=== PATIENT | female | born 1970 | race Caucasian/White ===

== ENCOUNTER → 2023-04-12 01:02 | Outpatient (CLI) | payer MEDICAID, SELFPAY ==
--- NOTE | 2023-04-12 08:15 | DI.RAD_ITS ---
Exam(s) XR CHEST 2V PA LATERAL EXAM: XR CHEST 2V PA LATERAL CLINICAL HISTORY: chronic cough/hx of breast cancer,r05.9 TECHNIQUE: 2D digital imaging was performed of the chest. Two images were obtained. PA and lateral views were obtained. COMPARISON: No exams were available for comparison FINDINGS: MEDIASTINUM: Normal. HEART: Normal. PULMONARY VASCULATURE: Normal. LUNGS: Clear. PLEURAL SPACE: No pleural effusion or pneumothorax. BONE:Within normal limits for the patient's age. OTHER FINDINGS:Normal. IMPRESSION: No acute pulmonary findings. DATA REPOSITORY: RADIATION DOSE DELIVERED:
== END ==
PROVIDERS: PCP Nurse Practitioner; Visit Provider Surgery
DX: R05.3 Chronic cough (principal); Z85.3 Personal history of malignant neoplasm of breast
CPT/HCPCS: 71046

== ENCOUNTER 2023-05-04 06:19 | Day surgery (SDC) | payer MEDICAID, SELFPAY ==
--- NOTE | 2023-05-03 16:59 | PDOC.DSDIS_ITS ---
Date of service: 05/04/23 Time of Service: 08:02 Discharge Plan Disposition Patient Disposition: Home Condition: Good Discharge Details Reason For Visit: screening colonoscopy Attending Provider: Héctor Magaña Primary Care Provider: TRINI PENNINGTON Home Meds and New Rx's Prescriptions: Continued cholecalciferol (vitamin D3) 50 mcg (2,000 unit) capsule 50 mcg PO DAILY cyanocobalamin (vitamin B-12) 1,000 mcg capsule 1,000 mcg PO DAILY ashwagandha extract 120 mg capsule 120 mg PO DIRECTED multivitamin Tablet 1 tab PO DAILY elderberry fruit 200 mg capsule 200 mg PO DIRECTED Discontinued polyethylene glycol 3350 17 gram/dose powder 238 g PO ONCE Qty: 238 0RF Rx Instructions: take per colonoscopy instructions bisacodyl [Dulcolax (bisacodyl)] 5 mg tablet,delayed release (DR/EC) 5 mg PO ONCE Qty: 4 0RF Rx Instructions: take per colonoscopy instructions Discharge Instructions Instructions: Diverticulosis (GEN), Diverticulosis Diet (GEN) Additional Instructions: Bianca, we were able to complete your colonoscopy today without much difficulty. Your prep was excellent. I did not see any signs of tumors, polyps or anything worrisome. Incidentally, you do have a fair amount of diverticulosis. Diverticula are weak spots in the colon wall that typically accumulate as we get older. They can get infected and inflamed. They can also bleed. When patients have symptoms, they typically experience a significant amount of pain usually on the left side of their abdomen or down across the bottom. Hopefully, yours never bother you. I did attach a little bit of information here regarding ty pical approaches to diverticular disease. My basic recommendation is to stay well-hydrated, avoid symptoms of constipation, and get at least 30 g of dietary fiber into your meals every day. If you have any questions at all, please do not hesitate to ask. Otherwise, we will see you in 10 years for your next colonoscopy. 1. If tolerated, consume a soft, low fiber diet for 1-2 days. 2[address] Do not drive, drink alcohol, operate machinery, make critical decisions, or do activities that require coordination or balance for 24 hours. 3. Because air was put into your colon during the procedure, expelling air from your rectum (passing gas or farting) is normal. 4. You may not have a bowel movement for 1-3 days because of the colonoscopy prep. This is normal. 5. Go directly to the emergency room if you notice any of the following: Develop chills (warm to touch), or if you have a thermometer and your temperature is above 101 Difficulty breathing or difficultly swallowing Persistent vomiting Severe abdominal pain, other than gas cramps Severe chest pain Black, tarry stools Any bleeding ? exceeding one tablespoon 6. Call your physician if the site where your intravenous was started becomes red, swollen, painful, and warm to touch. 7. Your physician has reviewed your pre-procedure medications. Please continue to take those medications as previously ordered. You will be given specific information/education regarding any changes to your medications before leaving. Activity:: Activity as Tolerated Diet:: As Tolerated Discharge Orders Discharge Orders: Discharge Order (Routine); Ordered 05/03/23 Ordered By: Héctor Magaña DS: Diagnosis Discharge Diagnosis (1) Encounter for screening colonoscopy: Status: Acute Asessment and Plan: Diverticulosis; otherwise negative screening colonoscopy. Follow-up in 10 years
--- NOTE | 2023-05-03 17:02 | COLE_ITS ---
Date of service: 05/04/23 Time of Service: 08:04 Colonoscopy Report Date of procedure: 05/04/23 Pre-op diagnosis general: screening colonoscopy Post-op diagnosis procedure note: other (Diverticulosis) Procedure: colonoscopy Surgeon: Héctor Magaña Anesthesia Type: General:No Airway Estimated blood loss (mL): 0 Pathology: none sent Complications: None Disposition: same day Indications: Bianca is a 53 year old woman who needs her firt screening colonoscopy Prep: Miralax/Dulcolax Procedure Start Time: 07:32 Procedure End Time: 07:55 Retraction Time: 7 Findings: Sigmoid diverticulosis extending from about 20 cm beyond the anus to about 40 Procedure Description: After the induction of anesthesia, and with the patient in left lateral decubitus position, I began by performing an external anorectal exam.? Perineum and skin were normal, as was the anal verge.? There was no evidence of external hemorrhoids.? Next, I performed a digital rectal exam.? I did not appreciate any abnormal findings.? Next, I advanced a colonoscope into the rectal vault.? I performed retroflexion.? This was normal.? Using insufflation, I then advanced the colonoscope beyond the rectal folds and into the sigmoid colon before advancing towards the cecum.? The quality of the prep was outstanding.? There was sigmoid diverticulosis extending from about 20 to 40 cm beyond the anal verge. Navigating the cecum was a little bit challenging, but with simple repositioning, we were able to maintain the true lumen of the colon without much difficulty. The scope was noted to be in the cecum by identification of the ileocecal valve and appendiceal orifice.? I then began withdrawing the colonoscope using repeated irrigation as necessary for full evaluation of the colonic mucosa. ?Once the scope was withdrawn to the level of the rectum, great care was taken to examine portions of the rectal folds.? Aside from the diverticulosis mentioned above, there were no other abnormalities. Finally, the scope was withdrawn and the patient was brought to the same-day surgery recovery unit as the anesthetic wore off. ?The findings and instructions were shared with the patient prior to discharge. Oil Trough Bowel Prep Oil Trough Bowel Prep Right Colon: 3 Left Colon: 3 Transverse Colon: 3 Total Score: 9
[2023-05-04 06:20] VITALS: BP 102/76; PULSE 76; RESP 16; TEMP 36.4; O2SAT 97
[2023-05-04] MEDS: Lactated Ringers 1,000 ML 80 ML IV (06:51)
--- NOTE | 2023-05-04 07:04 | W.ANESPRE ---
General Info Date of Service Date Performed: 05/04/23 Height: 5 ft Weight: 63.049 kg Body Mass Index (BMI): 27.1 Surgical Procedure: Operation Date: 05/04/23 07:35 Proposed Procedure Side Surgeon p Claudio Magaña MD Meds Allergies and Home Medications Allergies Allergy/AdvReac Type Severity Reaction Status Date / Time latex Allergy Mild Itching Unverified 05/03/23 10:35 No Known Drug Allergies Allergy Unknown Verified 04/10/23 14:42 Home Medication Medication Instructions Recorded ashwagandha extract 120 mg capsule 120 mg PO DIRECTED 04/10/23 cholecalciferol (vitamin D3) 50 50 mcg PO DAILY 04/10/23 mcg (2,000 unit) capsule cyanocobalamin (vitamin B-12) 1,000 mcg PO DAILY 04/10/23 1,000 mcg capsule multivitamin 1 tab PO DAILY 04/10/23 elderberry fruit 200 mg capsule 200 mg PO DIRECTED 05/03/23 Current Visit Medications: Current Medications Generic Name Dose Route Start Last Admin Trade Name Freq PRN Reason Stop Dose Admin Hyoscyamine Sulfate 0.125 mg 05/03/23 17:04 Hyoscyamine 0.125 Mg Sl/Oral/Chew SL 06/02/23 17:03 DIRECTED PRN Ringer's Solution 1,000 mls @ 80 mls/hr 05/04/23 06:00 05/04/23 06:51 IV 06/02/23 23:59 80 mls/hr INFUSION MILIND Administration IV Miscellaneous Supplies 1 each 05/04/23 06:00 Iv Access IV 06/02/23 23:59 DIRECTED MILIND Ondansetron HCl 4 mg 05/03/23 17:04 Ondansetron 4 Mg/2 Ml Vial IVP 06/02/23 17:03 Q4H PRN PRN Nausea / Vomiting Sodium Chloride 0 ml 05/04/23 06:00 Normal Saline Flush 10 Ml Syr IV 06/02/23 23:59 PRN PRN Sodium Chloride 0 ml 05/04/23 06:00 Normal Saline 10 Ml Vial IJ 06/02/23 23:59 DIRECTED PRN Sterile Water 0 ml 05/04/23 06:00 Water,Injection,Sterile 10 Ml Vial IJ 06/02/23 23:59 DIRECTED PRN PFSH Active Problems Active Problems: Problem Status Onset Code Encounter for screening colonoscopy Z12.11 Breast cancer C50.919 Cough in adult R05.9 Medical History Medical History Comments:: Pt. states she usually needs to have toast or crackers right off or she will vomit. Surgical History Surgical History (Updated 05/04/23 @ 06:34 by Kiara Harden RN) Previous section History of appendectomy History of lumpectomy Tobacco Smoking/Tobacco Use Status: Never Alcohol Alcohol Intake: current Alcohol intake frequency: a few times a week Alcohol type: other Substance Use Substance use: Never Substance use type: does not use Vital Signs and Lab Results Vital Signs Most Recent Vital Signs in EMR: Most Recent Vital Signs Temp Pulse Resp BP Pulse Ox 36.4 C L 76 16 102/76 97 05/04/23 06:20 05/04/23 06:20 05/04/23 06:20 05/04/23 06:20 05/04/23 06:20 Lab Results Blood Type / Crossmatch: No Data to Display Complete Blood Count: No Data to Display Complete Metabolic Panel: No Data to Display Liver Function Panel: No Data to Display Coagulation Panel: No Data to Display Cardiac Panel: No Data to Display Arterial Blood Gas: No Data to Display Venous Blood Gas: No Data to Display Pancreas Panel: No Data to Display Thyroid Panel: No Data to Display Infectious Disease: No Data to Display Blood Cultures: No Data to Display Toxicology Panel: No Data to Display Panel: No Data to Display Anesthesia Assessment and Plan Anesthesia History Personal History: PONV and Delayed Emergence Family History: No Family History of Anesthesia Complications Exercise Tolerance Exercise Tolerance: Metabolic Equivalents>4 Pertinent Negatives Pertinent Negatives: No Symptoms of GERD, No Major Cardiovascular Symptoms or Complaints and No Major Pulmonary Symptoms or Complaints Cardiac & Pulmonary Exam Cardiac Exam: Normal S1/S2 Heart Sounds Pulmonary Exam: Clear Bilateral Breath Sounds Implantable Cardiac Device Does patient have a Pacemaker or an ICD?: No Airway Exam Known Difficult Airway: No Mallampati Class: 2 Mouth Opening: Normal (> 3cm) Thyromental Distance: Greater than 3 cm Neck Range of Motion: Full ROM Neck Circumference: Normal Teeth Condition: Normal Dentition ASA Classification ASA Score: ASA 2 Emergency Case?: No NPO Status NPO Status: NPO Clears >2 hours, Solids >8 hours Status Status: Pt. refuses testing, she was counseled on anesthesia risks Anesthesia Plan Resuscitation Status: Full Code Anesthesia Technique: General Anesthesia Airway Planned: Natural Airway Monitors Used: Standard Monitors
[2023-05-04 07:09] VITALS: BMI 27.1
[2023-05-04 08:02] VITALS: BP 84/64; PULSE 76; RESP 14; TEMP 36.4; O2SAT 99
--- NOTE | 2023-05-04 08:13 | W.ANESPOSTOP ---
Postoperative Evaluation Date, Time and Location Date Performed: 05/04/23 Time Performed: 08:13 Patient Location: Day Surgery Unit Vital Signs Most Recent Imported Vital Signs: Most Recent Vital Signs Temp Pulse Resp BP Pulse Ox 36.4 C L 76 14 84/64 L 99 05/04/23 08:02 05/04/23 08:02 05/04/23 08:02 05/04/23 08:02 05/04/23 08:02 Pain Score Most Recent Pain Score: Most Recent Pain Score Pain Level 0 05/04/23 08:02 Assessment Mental Status: Awake (Alert & Oriented to Patient Baseline) Airway and Respiratory Function: Patent airway with normal (patient baseline) respiratory exam Cardiovascular Function: Hemodynamically Stable Hydration Status: Adequately Hydrated Nausea & Vomiting: No Nausea or Vomiting Pain: Pt. Denies Any Pain Peripheral Nerve Block: Patient did not receive a nerve block
[2023-05-04 08:34] VITALS: BP 104/84; PULSE 71; RESP 16; TEMP 36.4; O2SAT 100
== END 2023-05-04 08:58 | disposition home or self-care (01) ==
PROVIDERS: PCP Nurse Practitioner; Visit Provider Surgery
PROC: 0DJD8ZZ Inspection of Lower Intestinal Tract, Via Natural or Artificial Opening Endoscopic (ICD-10-PCS; CPT 45378; principal; 2023-05-04 07:30)
DX: Z12.11 Encounter for screening for malignant neoplasm of colon (principal); K57.30 Diverticulosis of large intestine without perforation or abscess without bleeding
CPT/HCPCS: 45378; J2001; J2405; J2704

== ENCOUNTER 2023-08-10 16:12 | Outpatient (REF) | payer MEDICAID, SELFPAY ==
--- NOTE | 2023-08-10 15:52 | ENDOMET_PTH ---
PATIENT: Bianca Mendez LOC: [facility] U#:[id number] AGE/SX: 53/F ROOM: RE08/10/[address]: Philomena Perla : 1970 BED: DIS: 08/10/2023 SPEC #: [id number] RECD: 08/10/23 18:23 STATUS: AMINAH REQ #: [id number] TOMASA: 08/10/23 15:[address]: Philomena Perla DEPT: Surgical Specimen RECD BY: Alessandra Alejandra ENTERED: 08/10/23 18:24 SP TYPE: Endomet OTHR DR: TRINI PENNINGTON Tissues: 1 - ENDOMETRIUM BX/ANASTACIA Procedures: GROSS AND MICRO LEVEL 4 Comments: [id number]
== END 2023-08-10 16:13 | disposition home or self-care (01) ==
LOC: LBN 16:12
PROVIDERS: PCP Nurse Practitioner; Visit Provider Obstetrics & Gynecology Gynecology
DX: N93.9 Abnormal uterine and vaginal bleeding, unspecified (principal); D26.0 Other benign neoplasm of cervix uteri
CPT/HCPCS: 88305

== ENCOUNTER 2023-11-24 00:19 | Outpatient (CLI) | payer MEDICAID, SELFPAY ==
--- OUTSIDE RECORDS SUMMARY | 2023-11-17 00:56 | XMS_ITS | Encounter Summary ---
Author Organization [facility] Address [address] [place] [address] Care Team Providers Care Network Relay Tester Name Role Phone Unknown, Provider Primary Care Provider Encounter Details Date Type Department Care Team (Late st Contact Info) Description 08/11/2023 Lab Requisition [facility] Pathology & Laboratory Medicine - [facility] [address] [place] [address] Philomena Corona MD [address] [place] [address] [address] [place], [place] [id number] Encounter for other general examination Social History Tobacco Use Types Packs/Day Years Used Date Smoking Tobacco: Never Assessed Sex and Gender Information Value Date Recorded Sex Assigned at Not on file Gender Identity Not on file Sexual Orientation Not on file documented as of this encounter Plan of Treatment Not on file documented as of this encounter Procedures Procedure Name Priority Date/Time Associated Diagnosis Comments SURGICAL PATHOLOGY Today 08/10/2023 15 :52 EDT Encounter for other general examination documented in this encounter Results * SURGICAL PATHOLOGY (08/10/2023 15:52 EDT) Note to Patient The following pathology results have been interpreted by your pathologist and may be available to you before your health provider has had the opportunity to review them. Please allow time for your provider to receive these results and explore management options, if applicable. 08/15/2023 15:33 EDT [facility] Final Diagnosis A. ENDOMETRIUM, BIOPSY: - Minute strips of inactive endometrium. - Extremely scant benign endocervical and squamous mucosa. 08/15/2023 15:33 EDT [facility] Attestation There was significant resident/fellow involvement in the diagnostic evaluation of this case. By the signature below, the attending physician certifies that they have personally conducted a gross and/or microscopic examination of the described specimens and rendered or confirmed the above diagnosis. 08/15/2023 15:33 EDT [facility] at 1533 Clinical History Postmenopausal bleeding 08/15/2023 15:33 EDT [facility] Gross Description A. Received in formalin labelled with proper patient identification (initials C, D) and endometrium is an aggregate of banegas-white viscous mucinous material (1.6 x 1.3 x 0.6 cm). Entirely submitted in A1. Tiffany Mcdonald 08/11/2023 12:03 08/15/2023 15:33 EDT [facility] Resident/Ciaran w: Helena Stroud MD 08/15/2023 15:33 EDT [facility] Performing Lab [facility] 08/15/2023 15:33 EDT [facility] Scanned Images 08/15/2023 15:33 EDT [facility] Tissue ENDOMETRIAL STRUCTURE / Unknown 08/10/2023 15:52 EDT 08/11/2023 8:14 EDT Philomena Corona MD PATHOLOGY ORDERABLES [facility] [address] [place], [place] [id number] documented in this encounter Visit Diagnoses Diagnosis Encounter for other general examination documented in this encounter Care Teams Network Relay Tester Relationship Specialty Start Date End Date Unknown, Provider, PCP - General 07/03/23 documented as of this encounter
--- OUTSIDE RECORDS SUMMARY | 2023-11-17 00:56 | XMS_ITS | Continuity of Care Document ---
Author Organization [facility] Ambulatory [facility]ics Address [address] [place] [address] Care Team Providers Care Athletic Equipment Custodian Name Role Phone TRINI PENNINGTON APRN Primary Care Physician Encounter [facility] NBR [id number] Date(s): 07/14/23 - 07/14/23 [facility] Amb[facility] [address] [place] [address]- Encounter Diagnosis De Quervain's tenosynovitis(Discharge Diagnosis) - 07/14/23 Discharge Disposition: Home or Self Care Attending Physician: Valencia Cedeno APRN Allergies, Adverse Reactions, Alerts No Known Allergies Assessment and Plan Extracted from: Title:Iris: Minnie Author:Valencia Cedeno APRN Date:07/14/23 1.??De Quervain's tenosynovi tis??M65.4 ??Bianca has history and exam consistent with de Quervain's tenosynovitis??who is slowly improving with bracing, PT and antiinflammatories. We again reviewed this diagnosis and further treatment options with Bianca opting to supplement with CSI today that is completed without incident. She will continue to progress through PT and brace as needed. She will follow up in 6 weeks for hopeful clearance to full use. All questions are answered prior to appointment end and she is encouraged to contact the office at any time with further questions or needs.?? Future Appointments Medications Gentle Laxative 5 mg oral delayed release tablet 4 EA, 0 Refill(s), TAKE 1 TABLET BY MOUTH ONCE FOR SOLONSCOPY BOWEL PREP, 0 Refill(s) Start Date: 06/07/23 Status: Ordered polyethylene glycol 3350 oral powder for reconstitution 238 g, 0 Refill(s), 0 Refill(s) Start Date: 06/07/23 Status: Ordered valACYclovir 500 mg oral tablet 6 EA, 0 Refill(s), TAKE 1 TABLET BY MOUTH TWICE DAILY AT ONSET OF OUTBREAK FOR 3 DAYS, 0 Refill(s) Start Date: 06/07/23 Status: Ordered Problem List Condition Confirmation Course Effective Dates Status Health St atus Informant Injury of right wrist Confirmed Active Vital Signs Most recent to oldest [Reference Range]: 1 Peripheral Pulse Rate [60-100 bpm] 76 bp m (07/14/23 8:21 AM) Blood Pressure [90-140/60-90 mmHg] 125/7 2mmHg (07/14/23 8:21 AM) Mean Arterial Pressure, Cuff [65-140 mmH g] 90 mmHg (07/14/23 8:21 AM) Weight 58.97 kg (07/14/23 8:21 AM) Weight Measured (lbs) 130.006 lb (07/14/23 8:21 AM) Weight Dosing 58.970 kg (07/14/23 8:21 AM) Height 152.4 cm (07/14/23 8:21 AM) Height/Length Measured (inches) 60 inch (07/14/23 8:21 AM) BSA Measured 1.58 m2 (07/14/23 8:21 AM) Body Mass Index 25.39 kg/m2 (07/14/23 8:21 AM) Social History Social History Type Response Tobacco Never tobacco user T obacco Use:. Sex Physician Outpatient Note * Valencia Cedeno APRN: PERFORM Event Display: Office Clinic Note Physician Authored Date: [id number] BIANCA ALLEN Huang :1970 Age:53 years Sex:Female Visit Date:07/14/2023 Primary Care Physician: TRINI PENNINGTON APRN Chief Complaint WC RIGHT WRIST F\U History of Present Illness Bianca is a pleasant 53 year old female who presents for reevaluation of right wrist pain after an injury while at work on 05/10/23. She works for the [employer] and on that day noticed repetitive popping and pain to the radial aspect of the wrist. Please see previous office notes??for complete history. 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 This change in career has also resolved the left elbow pain she was suffering from. She denies new injury. ?? Review of Systems Constitutional:?No??fevers,?No??chills,?No??sweats Respiratory:?No??shortness of breath,?No??cough Cardiovascular:?No??Chest pain,?No??palpitations,?No??syncope Gastrointestinal:?Nonausea,?No??vomiting,?No??diarrhea Gallo/Lymph:?No??bruising tendency,?No??swollen lymph glands Musculoskeletal:??No??back pain,??No??neck pain,??Positive for??joint pain,??No??muscle pain,??Positive for??decreased range of motion Integumentary:?No??rash,?No??pruritus,?No??abrasions Neurologic: Alert & oriented X 4 Physical Exam Vitals & Measurements HR:??76??(Peripheral)?? BP:??125/72?? SpO2:??99%?? HT:??152.4??cm?? WT:??58.97??kg?? BMI:??25.39?? Pain Score:??4?? BSA:??1.58?? The patient is well dressed, well groomed and appearing stated age in NAD. Focused examination of the right wrist reveals no gross deformity, skin is intact. There is tenderness about the radial sided first dorsal compartment, mild edema. Mild forearm tenderness. Elbow ROM is full without pain. Passive wrist ROM intact. Thumb opposition intact. Can extend all fingers with ease. CMC grind without crepitus or pain. Leander testing grossly positive. 2+ radial pulse, intact sensation, neurovascularly intact right hand. Procedure Risks, benefits and alternatives to this injection are discussed with the patient, verbal consent is obtained. ??Under standard, sterile technique,??the radial first dorsal compartment is meticulously prepped with alcohol x3. ??Then 6mg Celestone combined with 1% lidocaine plain is injected withoutdifficulty.?? The patient tolerated the injection very well and a dry, sterile bandage is applied. ??Postinjection instructions are provided. Assessment/Plan 1.??De Quervain's tenosynovitis??M65.4 ??Bianca has history and exam consistent with de Quervain's tenosynovitis??who is slowly improving with bracing, PT and antiinflammatories. We again reviewed this diagnosis and further treatment options with Bianca opting to supplement with CSI today that is completed without incident. She will continue to progress through PT and brace as needed. She will follow up in 6 weeks for hopeful clearance to full use. All questions are answered prior to appointment end and she is encouraged to contact the office at any time with further questions or needs.?? Problem List/Past Medical History Ongoing Injury of right wrist Historical No qualifying data Medications Gentle Laxative 5 mg oral delayed release tablet polyethylene glycol 3350 oral powder for reconstitution valACYclovir 500 mg oral tablet Allergies No Known Allergies Social History Electronic Cigarette/Vaping Electronic Cigarette Use: Never. Tobacco Never tobacco user Tobacco Use:. Electronically Signed on 07/14/23 08:55 AM Valencia Cedeno APRN Patient Care team information Care Team Personnel Name: TRINI PENNINGTON APRN Position: No Access Member Role: Primary Care Physician Address: Address: [address] [place], [place] [address] [address]- Care Team Related Persons Name: ARTI ALLEN
--- OUTSIDE RECORDS SUMMARY | 2023-11-17 00:56 | XMS_ITS | Continuity of Care Document ---
Author Organization [facility] Address [address] [place] [address] Care Team Providers Care Adjunct Psychology Instructor Name Role Phone TRINI PENNINGTON APRN Primary Care Physician [phone] Encounter [facility] NBR [id number] Date(s): 05/10/23 - 05/10/23 [facility] [address] [place] [address]- [place] Encounter Diagnosis De Quervain's tenosynovitis(Discharge Diagnosis) - 05/10/23 Discharge Disposition: Home f/u Internal Provider Attending Physician: Mukund Michel DO Admitting Physician: Mukund Michel DO Allergies, Adverse Reactions, Alerts No Known Allergies Assessment and Plan Extracted from: Title:ED Provider Note Author:Mukund Michel DO Date:05/11/23 Assessment/Plan 1.??De Quervain's tenosynovitis??M65.4 Patient Education De Quervain's Tenosynovitis Follow Up With When Contact Information [facility] Within 1 week Additional Instructions: You have??signs and symptoms of de Quervain's tenosynovitis.?? Please read the discharge instructions in detail as it??provides information about diagnosis, treatment, and further??interventions if necessary. ??Please use the brace??for support??and you may take it off during sleep or showers.?? Please use ibuprofen 600 mg every 6 hours with food as well as Tylenol 1000 mg every 4 hours not to exceed 4000 mg in 24 hours. ??Practice RICE therapy (rest, ice, compression??in the form of the wrist splint, and elevation). Mental Status 05/10/23 Eye Opening Response [place] Spontaneous ly Best Verbal Response [place] Oriented Best Motor Response Amita Obeys comman ds [place] Coma Score 15 Problem List No Known Problems Vital Signs Most recent to oldest [Reference Range]: 1 Temperature Temporal Artery [36-38 Deg C ] 36.5 Deg C (05/10/23 6:35 PM) Peripheral Pulse Rate [60-100 bpm] 77 bp m (05/10/23 6:35 PM) Respiratory Rate [12-24 br/min] 16 br/mi n (05/10/23 6:35 PM) Blood Pressure [90-140/60-90 mmHg] 129/8 5mmHg (05/10/23 6:35 PM) Mean Arterial Pressure, Cuff [70-110 mmH g] 100 mmHg (05/10/23 6:35 PM) Weight 60 kg (05/10/23 6:35 PM) Weight Dosing 60.000 kg (05/10/23 6:35 PM) Height 152 cm (05/10/23 6:35 PM) Body Mass Index 25.97 kg/m2 (05/10/23 6:35 PM) Social History Social History Type Response Tobacco Never tobacco user T obacco Use:. Sex Hospital Discharge Instructions Patient Education 05/10/2023 18:07:59 De Quervain's Tenosynovitis De Quervain's Tenosynovitis De Quervain's tenosynovitis is a condition that causes inflammation of the tendon on the thumb sideof the wrist. Tendons are cords of tissue that connect bones to muscles. The tendons in the hand pass through a tunnel called a sheath. A slippery layer of tissue (synovium) lets the tendons move smoothly in the sheath. With de Quervain's tenosynovitis, the sheath swells or thickens, causing friction and pain. The condition is also called de Quervain's disease and de Quervain's syndrome. It occurs most oftenin women who are 30???50 years old. What are the causes? The exact cause of this condition is not known. It may be associated with overuse of the hand and wrist. What increases the risk? You are more likely to develop this condition if you: ??? Use your hands far more than normal, especially if you repeat certain movements that involve twisting your hand or using a tight dough puncher. ??? Are . ??? Are a middle-aged woman. ??? Have rheumatoid arthritis. ??? Have diabetes. What are the signs or symptoms? The main symptom of this condition is pain on the thumb side of the wrist. The pain may get worse when you grasp something or turn your wrist. Other symptoms may include: ??? Pain that extends up the forearm. ??? Swelling of your wrist and hand. ??? Trouble moving the thumb and wrist. ??? A sensation of snapping in the wrist. ??? A bump filled with fluid (cyst) in the area of the pain. How is this diagnosed? This condition may be diagnosed based on: ??? Your symptoms and medical history. ??? A physical exam. During the exam, your health care provider may do a simple test (Leander test) that involves pulling your thumb and wrist to see if this causes pain. You may also need to have an X-ray or ultrasound. How is this treated? Treatment for this condition may include: ??? Avoiding any activity that causes pain and swelling. ??? Taking medicines. Anti-inflammatory medicines and corticosteroid injections may be used to reduce inflammation and relieve pain. ??? Wearing a splint. ??? Having surgery. This may be needed if other treatments do not work. Once the pain and swelling have gone down, you may start: ??? Physical therapy. This includes exercises to improve movement and strength in your wrist and thumb. ??? Occupational therapy. This includes adjusting how you move your wrist. Follow these instructions at home: If you have a splint: ??? Wear the splint as told by your health care provider. Remove it only as told by your health care provider. ??? Loosen the splint if your fingers tingle, become numb, or turn cold and blue. ??? Keep the splint clean. ??? If the splint is not waterproof: ??? Do not let it get wet. ??? Cover it with a watertight covering when you take a bath or a shower. Managing pain, stiffness, and swelling ??? Avoid movements and activities that cause pain and swelling in the wrist area. ??? If directed, put ice on the painful area. This may be helpful after doing activities that involve the sore wrist. To do this: ??? Put ice in a plastic bag. ??? Place a towel between your skin and the bag. ??? Leave the ice on for 20 minutes, 2???3 times a day. ??? Remove the ice if your skin turns bright red. This is very important. If you cannot feel pain, heat, or cold, you have a greater risk of damage to the area. ??? Move your fingers often to reduce stiffness and swelling. ??? Raise (elevate) the injured area above the level of your heart while you are sitting or lying down. General instructions ??? Return to your normal activities as told by your health care provider. Ask your health care provider what activities are safe for you. ??? Take gcsb-inh-idqnmmj and prescription medicines only as told by your health care provider. ??? Keep all follow-up visits. This is important. Contact a health care provider if: ??? Your pain medicine does not help. ??? Your pain gets worse. ??? You develop new symptoms. Summary ??? De Quervain's tenosynovitis is a condition that causes inflammation of the tendon on the thumb side of the wrist. ??? The condition occurs most often in women who are 30???50 years old. ??? The exact cause of this condition is not known. It may be associated with overuse of the hand and wrist. ??? Treatment starts with avoiding activity that causes pain or swelling in the wrist area. Other treatments may include wearing a splint and taking medicine. Sometimes, surgery is needed. This information is not intended to replace advice given to you by your health care provider. Make sure you discuss any questions you have with your health care provider. Document Revised: 07/01/2020 Document Reviewed: 07/01/2020 [employer] Patient Education ?? 2022 [employer]. Follow Up Care 05/10/2023 18:35:27 With:[facility] Address: When:1 week Comments:You have??signs and symptoms of de Quervain's tenosynovitis.?? Please read the discharge instructions in detail as it??provides information about diagnosis, treatment, and further??interventions if necessary. ??Please use the brace??for support??and you may take it off during sleep or showers.?? Please use ibuprofen 600 mg every 6 hours with food as well as Tylenol 1000 mg every 4 hours not to exceed 4000 mg in 24 hours. ??Practice RICE therapy (rest, ice, compression??in the form of the wrist splint, and elevation). Discharge instructions * Event Display: Discharge Instructions Physician Emergency department Note * Mukund Michel DO: PERFORM Event Display: ED Note Physician Authored Date: [id number] KATTY ALLEN Huang :1970 Age:53 years Sex:Female Visit Date:05/10/2023 Primary Care Physician: TRINI PENNINGTON APRN Basic Information Time Seen: Mukund Michel DO / 05/10/2023 18:48 Chief Complaint Pt c/o R wirst pain after trying to open a door while at work yesterday. History Of Present Illness: This is a 53-year-old??female??no significant past medical history presents the emergency department with right wrist discomfort.?? 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 She has pain on the radial side of the wrist that is more notable with thumb and wrist movements.?? She has tenderness and swelling on the radial side of the wrist.?? 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 Review of Systems: Review of systems negative other than mentioned in HPI Physical Exam Vitals & Measurements T:??36.5?C ??(Temporal Artery)?? HR:??77??(Peripheral)?? RR:??16?? BP:??129/85?? SpO2:??98%?? HT:??152??cm?? WT:??60??kg?? BMI:??25.97?? O2 Therapy:??Room air?? Right wrist examination.?? There is tenderness and enlargement of the first dorsal compartment of the radial styloid.?? There is pain at the radial styloid with active and passive strapping of thumb tendons over the radial styloid and thumb flexion (Leander test positive).?? Otherwise there is no effusion, ecchymosis, deformity, asymmetry or atrophy noted.?? There is no pain to palpation of the ulnar styloid, Roxana's tubercle, scapholunate junction, pisiform, hamate, metacarpals or phalanges.?? Patient has intact wrist extension, opposition of thumb, and digit abduction-neurovascular intact.?? Again positive Finklestein's test. Medical Decision Making: De Quervain tenosynovitis.?? Patient has history and physical examination findings consistent??withthis diagnosis.?? Thumb splint applied. ??RICE therapy discussed.?? Worker's Compensation paperworkfilled out.?? Discharge instructions discussed as documented below.?? Follow-up with orthopedics recommended??with persistent discomfort.?? All questions were answered. ??Patient expressed understanding disposition was grateful for discharge home. Procedure No Qualifying Data Assessment/Plan 1.??De Quervain's tenosynovitis??M65.4 Patient Education De Quervain's Tenosynovitis Follow Up With When Contact Information [facility] Within 1 week Additional Instructions: You have??signs and symptoms of de Quervain's tenosynovitis.?? Please readthe discharge instructions in detail as it??provides information about diagnosis, treatment, and further??interventions if necessary. ??Please use the brace??for support??and you may take it off during sleep or showers.?? Please use ibuprofen 600 mg every 6 hours with food as well as Tylenol 1000 mg every 4 hours not to exceed 4000 mg in 24 hours. ??Practice RICE therapy (rest, ice, compression??in the form of the wrist splint, and elevation). Problem List/Past Medical History Ongoing No chronic problems Historical No qualifying data Medication Administration Given ibuprofen, 600 mg, Oral Tylenol, 1000 mg, Oral Allergies No Known Allergies Social History Electronic Cigarette/Vaping Electronic Cigarette Use: Never. Tobacco Never tobacco user Tobacco Use:. Electronically Signed on 05/11/23 08:43 AM Mukund Michel DO Emergency department Discharge instructions * Mukund Michel DO: PERFORM Event Display: ED Discharge Information Authored Date: [id number] KATTY ALLEN :1970 Age:53 years Sex:Female Visit Date:05/10/2023 Primary Care Physician: TRINI PENNINGTON APRN Discharge Instructions We would like to thank you for allowing us to assist you with your healthcare needs. The following includes patient education materials and information regarding your injury/illness. Diagnosis from Today's Visit De Quervain's tenosynovitis Discharge Vitals Temperature??(Temporal Artery) 97.7 ??F (36.5 ??C) Heart Rate??(Peripheral) 77 Respiratory Rate?? 16 Blood Pressure?? 129/85?? Height?? 59.84 in (152 cm) Weight?? 132.30 lb (60 kg) BMI?? 25.97 Allergies No Known Allergies What to Do Next You Need to Schedule the Following Appointments Follow Up with[facility] When:??Within 1 week Why: You have??signs and symptoms of de Quervain's tenosynovitis.?? Please read the discharge instructions in detail as it??provides information about diagnosis, treatment, and further??interventionsif necessary. ??Please use the brace??for support??and you may take it off during sleep or showers.?? Please use ibuprofen 600 mg every 6 hours with food as well as Tylenol 1000 mg every 4 hours not to exceed 4000 mg in 24 hours. ??Practice RICE therapy (rest, ice, compression??in the form of the wrist splint, and elevation). You were treated today on an emergency basis; it may be gutierrez to contact your primary care provider to notify them of your visit today. You may have been referred to your regular doctor or a specialist, please follow up as instructed. If your condition worsens or you can't get in to see the doctor, contact the Emergency Department. Education Materials De Quervain's Tenosynovitis De Quervain's tenosynovitis is a condition that causes inflammation of the tendon on the thumb sideof the wrist. Tendons are cords of tissue that connect bones to muscles. The tendons in the hand pass through a tunnel called a sheath. A slippery layer of tissue (synovium) lets the tendons move smoothly in the sheath. With de Quervain's tenosynovitis, the sheath swells or thickens, causing friction and pain. The condition is also called de Quervain's disease and de Quervain's syndrome. It occurs most oftenin women who are 30???50 years old. What are the causes? The exact cause of this condition is not known. It may be associated with overuse of the hand and wrist. What increases the risk? You are more likely to develop this condition if you: ? Use your hands far more than normal, especially if you repeat certain movements that involve twisting your hand or using a tight dough puncher. ? Are . ? Are a middle-aged woman. ? Have rheumatoid arthritis. ? Have diabetes. What are the signs or symptoms? The main symptom of this condition is pain on the thumb side of the wrist. The pain may get worse when you grasp something or turn your wrist. Other symptoms may include: ? Pain that extends up the forearm. ? Swelling of your wrist and hand. ? Trouble moving the thumb and wrist. ? A sensation of snapping in the wrist. ? A bump filled with fluid (cyst) in the area of the pain. How is this diagnosed? This condition may be diagnosed based on: ? Your symptoms and medical history. ? A physical exam. During the exam, your health care provider may do a simple test (Leander test)that involves pulling your thumb and wrist to see if this causes pain. You may also need to have an X-ray or ultrasound. How is this treated? Treatment for this condition may include: ? Avoiding any activity that causes pain and swelling. ? Taking medicines. Anti-inflammatory medicines and corticosteroid injections may be used to reduce inflammation and relieve pain. ? Wearing a splint. ? Having surgery. This may be needed if other treatments do not work. Once the pain and swelling have gone down, you may start: ? Physical therapy. This includes exercises to improve movement and strength in your wrist and thumb. ? Occupational therapy. This includes adjusting how you move your wrist. Follow these instructions at home: If you have a splint: ? Wear the splint as told by your health care provider. Remove it only as told by your health care provider. ? Loosen the splint if your fingers tingle, become numb, or turn cold and blue. ? Keep the splint clean. ? If the splint is not waterproof: ? Do not let it get wet. ? Cover it with a watertight covering when you take a bath or a shower. Managing pain, stiffness, and swelling ? Avoid movements and activities that cause pain and swelling in the wrist area. ? If directed, put ice on the painful area. This may be helpful after doing activities that involve the sore wrist. To do this: ? Put ice in a plastic bag. ? Place a towel between your skin and the bag. ? Leave the ice on for 20 minutes, 2???3 times a day. ? Remove the ice if your skin turns bright red. This is very important. If you cannot feel pain, heat, or cold, you have a greater risk of damage to the area. ? Move your fingers often to reduce stiffness and swelling. ? Raise (elevate) the injured area above the level of your heart while you are sitting or lying down. General instructions ? Return to your normal activities as told by your health care provider. Ask your health care provider what activities are safe for you. ? Take cdbx-dxi-ryofyqt and prescription medicines only as told by your health care provider. ? Keep all follow-up visits. This is important. Contact a health care provider if: ? Your pain medicine does not help. ? Your pain gets worse. ? You develop new symptoms. Summary ? De Quervain's tenosynovitis is a condition that causes inflammation of the tendon on the thumb sideof the wrist. ? The condition occurs most often in women who are 30???50 years old. ? The exact cause of this condition is not known. It may be associated with overuse of the hand and wrist. ? Treatment starts with avoiding activity that causes pain or swelling in the wrist area. Other treatments may include wearing a splint and taking medicine. Sometimes, surgery is needed. This information is not intended to replace advice given to you by your health care provider. Make sure you discuss any questions you have with your health care provider. Document Revised: 07/01/2020 Document Reviewed: 07/01/2020 [employer] Patient Education ?? 2022 [employer] Patient/Hand Tile Maker Signature Patient Name:KATTY ALLEN I have received this information and my questions have been answered. Patient/Hand Tile Maker Name: Patient/Hand Tile Maker Signature: Relationship to Patient: Witness Name/Signature: Date: Electronically Signed on: 05/10/2023 19:10 ESTSigned by:ROD Patient Care team information Care Team Personnel Name: TRINI PENNINGTON APRN Position: No Access Member Role: Primary Care Physician Address: Address: [address] [place] [id number]- Care Team Related Persons Name: ARTI ALLEN
--- OUTSIDE RECORDS SUMMARY | 2023-11-17 00:56 | XMS_ITS | Continuity of Care Document ---
Author Organization [facility] Address [address] [place] [address] Care Team Providers Care Crime Victim Specialist Name Role Phone TRINI PENNINGTON APRN Primary Care Physician [phone] Encounter [facility] NBR [id number] Date(s): 06/07/23 - 06/07/23 [facility] [address] [place] [address]- Encounter Diagnosis De Quervain's tenosynovitis(Discharge Diagnosis) - 06/07/23 Left lateral epicondylitis(Discharge Diagnosis) - 06/07/23 Discharge Disposition: Home or Self Care Attending Physician: Valencia Cedeno APRN Allergies, Adverse Reactions, Alerts No Known Allergies Assessment and Plan Extracted from: Title:Alpine: Wrist/Elbow Author:Valencia Cedeno APRN Date:06/07/23 1.??De Quervain's tenosynovi tis??M65.4 Bianca has history and exam consistent with de Quervain's tenosynovitis on the right and now left lateral epicondylitis??after overuse while at work. We previously discussed this at length and Bianca has been appropriately wearing the splint and taking antiinflammatories without complete relief.??We again discussed CSI however she is reasonably opting to see how she progresses through PT prior to this.??She will remain with work restrictions and follow up after 4 weeks of PT to assess progress. All questions are answered prior to appointment end and Bianca is encouraged to contact the office at any time with further questions or needs. 2.??Left lateral epicondylitis??M77.12 Future Appointments Medications Gentle Laxative 5 mg [...] Start Date: 06/07/23 Status: Ordered Problem List No Known Problems Vital Signs Most recent to oldest [Reference Range]: 1 Peripheral Pulse Rate [60-100 bpm] 72 bp m (06/07/23 2:31 PM) Blood Pressure [90-140/60-90 mmHg] 112/7 8mmHg (06/07/23 2:31 PM) Mean Arterial Pressure, Cuff [65-140 mmH g] 89 mmHg (06/07/23 2:31 PM) Weight 61.23 kg (06/07/23 2:31 PM) Weight Measured (lbs) 134.989 lb (06/07/23 2:31 PM) Weight Dosing 61.230 kg (06/07/23 2:31 PM) Height 152.4 cm (06/07/23 2:31 PM) Height/Length Measured (inches) 60 inch (06/07/23 2:31 PM) BSA Measured 1.61 m2 (06/07/23 2:31 PM) Body Mass Index 26.36 kg/m2 (06/07/23 2:31 PM) Social History Social History Type Response Tobacco Never tobacco user T obacco Use:. Sex Physician Outpatient Note * Valencia Cedeno APRN: PERFORM Event Display: Office Clinic Note Physician Authored Date: [id number] BIANCA ALLEN Huang :1970 Age:53 years Sex:Female Visit Date:06/07/2023 Primary Care Physician: TRINI PENNINGTON APRN Chief Complaint WC RIGHT WRIST History of Present Illness Bianca is a pleasant 53 year old female who presents for reevaluation of right wrist pain after an injury while at work on 05/10/23. She works for the [employer] and on that day noticed repetitive popping and pain to the radial aspect of the wrist. Please see office visit from 05/24/23 for complete history. Since that visit she has been compliant with splinting states the right wrist is slightly improving but has not gotten into PT just yet, slated to start next week. She now has some left lateral forearm??pain that she is attributing to overuse via compensation. She denies new injury. ?? Review of Systems Constitutional:?No??fevers,?No??chills,?No??sweats Respiratory:?No??shortness of breath,?No??cough Cardiovascular:?No??Chest pain,?No??palpitations,?No??syncope Gastrointestinal:?Nonausea,?No??vomiting,?No??diarrhea Gallo/Lymph:?No??bruising tendency,?No??swollen lymph glands Musculoskeletal:??No??back pain,??No??neck pain,??Positive for??joint pain,??No??muscle pain,??No??decreased range of motion Integumentary:?No??rash,?No??pruritus,?No??abrasions Neurologic: Alert & oriented X 4 Physical Exam Vitals & Measurements HR:??72??(Peripheral)?? BP:??112/78?? SpO2:??99%?? HT:??152.4??cm?? WT:??61.23??kg?? BMI:??26.36?? Pain Score:??4?? BSA:??1.61?? The patient is well dressed, well groomed and appearing stated age in NAD. Focused examination of the right wrist reveals no gross deformity, skin is intact. There is tenderness about the radial sided first dorsal compartment, mild edema. Mild forearm tenderness. Elbow ROM is full without pain. Passive wrist ROM intact. Thumb opposition intact although guarded. Can extend all fingers with ease. CMC grind without crepitus or pain. Leander testing grossly positive. 2+ radial pulse, intact sensation, neurovascularly intact right hand. The left upper extremity is without gross deformity. Mildtenderness about the lateral epicondyle. Active and passive elbow ROM intact without pain. Pain with resisted flexion and extension as well as supination. Forearm compartment is soft and mildly tender. LUIS is neurovascularly intact. ?? Assessment/Plan 1.??De Quervain's tenosynovitis??M65.4 Bianca has history and exam consistent with de Quervain's tenosynovitis on the right and now left lateral epicondylitis??after overuse while at work. We previously discussed this at length and Claudiaas been appropriately wearing the splint and taking antiinflammatories without complete relief.??We again discussed CSI however she is reasonably opting to see how she progresses through PT prior tothis.??She will remain with work restrictions and follow up after 4 weeks of PT to assess progress.All questions are answered prior to appointment end and Bianca is encouraged to contact the office at any time with further questions or needs. 2.??Left lateral epicondylitis??M77.12 Problem List/Past Medical History Ongoing No chronic problems Historical No qualifying data Medications Gentle Laxative 5 mg oral delayed release tablet polyethylene glycol 3350 oral powder for reconstitution valACYclovir 500 mg oral tablet Allergies No Known Allergies Social History Electronic Cigarette/Vaping Electronic Cigarette Use: Never. Tobacco Never tobacco user Tobacco Use:. Electronically Signed on 06/07/23 02:55 PM Valencia Cedeno APRN Patient Care team information Care Team Personnel Name: TRINI PENNINGTON APRN Position: No Access Member Role: Primary Care Physician Address: Address: [address] [place], [place] [address] [address]- Care Team Related Persons Name: ARTI ALLEN
--- OUTSIDE RECORDS SUMMARY | 2023-11-17 00:56 | XMS_ITS | Encounter Summary ---
Author Organization [facility] [place] [address] Care Team Providers Care Textbook Associate Name Role Phone Unknown Primary Care Provider Unavailabl e Reason for Referral * Consultation (Routine) - Specialty Diagnoses / Procedures Referred By Contsebas t Referred To Contact Dermatology Diagnoses Family history of other specified malignant neoplasm Maite Gutierrez APRN [address] [facility] [place] [address] [facility] Dermatology [address] [place] [address] Referral ID Status Reason Start Date Expiration Date V isits Requested Visits Authorized [id number] Consult, Test & Treat PCP Updated and/or Approved 05/05/2023 11/02/2023 1 1 Encounter Details Date Type Department Care Team (Latest Contact Info) Description 05/13/2023 Transcribe Orders eDH Incoming Referrals [phone] Maite Gutierrez APRN [address] [facility] [place] [address] Family history of other specified malignant neoplasm Social History Tobacco Use Types Packs/Day Years Used Date Smoking Tobacco: Never Assessed Sex and Gender Information Value Date Recorded Sex Assigned at Not on file Gender Identity Not on file Sexual Orientation Not on file documented as of this encounter Plan of Treatment Upcoming Encounters Date Type Department Care Team (Late st Contact Info) Description 12/14/2023 3:20 PM EDT Office Visit Dermatology at [facility] [address] [place] [address] Scheduled Referrals Name Type Priority Associated Diagnoses Order Schedule Referral to Dermatology Outpatient Referral Routine Family history of other specified malignant neoplasm Ordered: 05/13/2023 documented as of this encounter Visit Diagnoses Diagnosis Family history of other specified malignant neoplasm documented in this encounter Care Teams Textbook Associate Relationship Specialty Start Date End Date Unknown None PCP - General 03/20/17 documented as of this encounter
--- OUTSIDE RECORDS SUMMARY | 2023-11-17 00:56 | XMS_ITS | Continuity of Care Document ---
Author Organization [facility] Address [address] [place] [address] Care Team Providers Care Dixonac Operator Name Role Phone TRINI PENNINGTON APRN Primary Care Physician Encounter [facility] NBR [id number] Date(s): 10/03/23 - 10/03/23 [facility] [address] [place], [place] [address] Encounter Diagnosis De Quervain's tenosynovitis, right(Discharge Diagnosis) - 10/03/23 Discharge Disposition: Home or Self Care Attending Physician: Lisa Garcia APRN Allergies, Adverse Reactions, Alerts No Known Allergies Assessment and Plan Extracted from: Title:Ortho--WC f/u R wrist Author:Lisa Garcia APRN Date:10/03/23 1.??De Quervain's tenosynovi tis, right??M65.4 Bianca is a pleasant 53-year-old woman??with??de Quervain's tenosynovitis on the right, work-related.?? She continues to be symptomatic despite appropriate treatment with splinting,??OT,??cortisone injection.?? She is interested in more definitive treatment with surgery, but not until the fall.?? Therefore she is going to continue with supportive care and has requested another injection today which I think is reasonable.?? I will have her follow-up in 6 to 8 weeks??with Dr. Stanton to discuss surgery.?? I am going to leave her work restrictions in place.?? She is in agreement with the above plan. ??She is encouraged to contact the office at anytime with questions or concerns. Ordered: Celestone Soluspan, 6 mg, Subcutaneous, Once, First Dose: 10/03/23 10:12:00 EDT, Stop Date: 10/03/23 10:12:00 EDT, Physician Stop, Routine ?? Future Appointments Medications valACYclovir 500 mg oral tablet 6 EA, 0 Refill(s), TAKE 1 TABLET BY MOUTH TWICE DAILY AT ONSET OF OUTBREAK FOR 3 DAYS, 0 Refill(s) Start Date: 06/07/23 Status: Ordered Problem List Condition Confirmation Course Effective Dates Status Health St atus Informant Injury of right wrist Confirmed Active Vital Signs Most recent to oldest [Reference Range]: 1 Peripheral Pulse Rate [60-100 bpm] 78 bp m (10/03/23 8:49 AM) Blood Pressure [90-140/60-90 mmHg] 128/7 6mmHg (10/03/23 8:49 AM) Mean Arterial Pressure, Cuff [65-140 mmH g] 93 mmHg (10/03/23 8:49 AM) Weight 61.96 kg (10/03/23 8:49 AM) Weight Measured (lbs) 136.598 lb (10/03/23 8:49 AM) Weight Dosing 61.960 kg (10/03/23 8:49 AM) Height 152.4 cm (10/03/23 8:49 AM) Height/Length Measured (inches) 60 inch (10/03/23 8:49 AM) BSA Measured 1.62 m2 (10/03/23 8:49 AM) Body Mass Index 26.68 kg/m2 (10/03/23 8:49 AM) Social History Social History Type Response Tobacco Never tobacco user T obacco Use:. Sex Hospital Discharge Instructions Follow Up Care 08/25/2023 09:29:58 With:Teja Stanton MD Address: [address] [place] [address]- When:Within 2 Month(s) Comments:WC--SX CONSULT RIGHT WRIST?? Physician Outpatient Note * Lisa Garcia APRN: PERFORM Event Display: Office Clinic Note Physician Authored Date: [id number] BIACNA ALLEN :1970 Age:53 years Sex:Female Visit Date:10/03/2023 Primary Care Physician: TRINI PENNINGTON APRN Chief Complaint WC RIGHT WRIST F/U History of Present Illness Bianca is a pleasant 53-year-old woman who has been dealing with??work-related right wrist pain formonths.?? 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 She was diagnosed with de Quervain's tenosynovitis. ??She has treated appropriately with bracing, OT and has had asingle??cortisone injection.?? The injection was helpful, but has worn off at this point. ??Her pain has returned. 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 She is interested in more definitive treatment. Review of Systems Constitutional:?No??fevers,?No??chills,?No??sweats Respiratory:?No??shortness of breath,?No??cough Cardiovascular:?No??Chest pain,?No??palpitations,?No??syncope Gastrointestinal:?Nonausea,?No??vomiting,?No??diarrhea Musculoskeletal:??No??back pain,??No??neck pain,??Positive for??joint pain,??No??muscle pain,??Positive for??decreased range of motion Integumentary:?No??rash,?No??pruritus,?No??abrasions Neurologic: Alert & oriented X 4 Psychiatric:?No??anxiety,?No??depression Physical Exam Vitals & Measurements HR:??78??(Peripheral)?? BP:??128/76?? SpO2:??99%?? HT:??152.4??cm?? WT:??61.96??kg?? BMI:??26.68?? Pain Score:??5?? BSA:??1.62?? The patient is alert and oriented x3. ??Pleasant and cooperative. ??Well-dressed and well-groomed.?? Appears stated age and is well-nourished and well- developed.?Examination of the right wrist reveals no deformity. ??Skin is intact. ??There is no erythema or warmth. ??No signs or symptoms of infection.?? No point tenderness. ??Range of motion is intact. ??Leander's test is positive. ??CMC grind test is negative.?? Radial pulse is 2+. ??Skin is warm and pink with brisk capillary refill and sensation and motion are intact distally. Procedure Risks, benefits and alternatives to this injection are discussed with the patient, verbal consent is obtained.?? Under standard, sterile technique,??the??right??wrist overlying the first dorsal compartment is meticulously prepped with alcohol x3. ??Then??Celestone 6 mg??combined with 1% lidocaine plain is injected without difficulty.?? The patient tolerated the injection very well and a dry, sterile??bandage is applied.?? Postinjection instructions are provided. Assessment/Plan 1.??De Quervain's tenosynovitis, right??M65.4 Bianca is a pleasant 53-year-old woman??with??de Quervain's tenosynovitis on the right, work-related.?? She continues to be symptomatic despite appropriate treatment with splinting,??OT,??cortisone injection.?? She is interested in more definitive treatment with surgery, but not until the fall.?? Therefore she is going to continue with supportive care and has requested another injection today which I think is reasonable.?? I will have her follow-up in 6 to 8 weeks??with Dr. Stanton to discuss surgery.?? I am going to leave her work restrictions in place.?? She is in agreement with the above plan. ??She is encouraged to contact the office at anytime with questions or concerns. Ordered: Celestone Soluspan, 6 mg, Subcutaneous, Once, First Dose: 10/03/23 10:12:00 EDT, Stop Date: 10/03/23 10:12:00 EDT, Physician Stop, Routine ?? Follow Up Instructions With When Contact Information Teja Stanton MD In 2 months [address] [place] [address]- Additional Instructions: WC--SX CONSULT RIGHT WRIST?? Problem List/Past Medical History Ongoing Injury of right wrist Historical No qualifying data Medications Celestone Soluspan, 6 mg, Subcutaneous, Once valACYclovir 500 mg oral tablet Allergies No Known Allergies Social History Electronic Cigarette/Vaping Electronic Cigarette Use: Never. Tobacco Never tobacco user Tobacco Use:. Electronically Signed on 10/03/2023 10:13 EDT Lisa Garcia APRN Patient Care team information Care Team Personnel Name: TRINI PENNINGTON APRN Position: No Access Member Role: Primary Care Physician Address: Address: [address] [place] [address] [place] [address]- Care Team Related Persons Name: ARTI ALLEN
--- OUTSIDE RECORDS SUMMARY | 2023-11-17 00:56 | XMS_ITS | Continuity of Care Document ---
Author Organization [facility] Address [address] [place] [address] Care Team Providers Care Harmonic Analyst Name Role Phone TRINI PENNINGTON APRN Primary Care Physician Encounter [facility] NBR [id number] Date(s): 04/18/23 - 04/18/23 [facility] [address] [place], [place] [address] Encounter Diagnosis Impaired fasting glucose(Final) - Encounter for screening for lipoid disorders(Final) - Encounter for screening for other metabolic disorders(Final) - Discharge Disposition: Home or Self Care Attending Physician: TRINI PENNINGTON APRN Admitting Physician: TRINI PENNINGTON APRN Referring Physician: TRINI PENNINGTON APRN Results Laboratory List Name Date Comprehensive Metabolic Pane l (Comprehensive Metabolic Profile, Non-Fasting (CMP) (CPT-51021)) 04/18/23 Hgb A1c (Hgb A1c (CPT-35008)) 04/18/23 Lipid Panel (Lipid Profile (CPT-99811)) 04/18/23 Most recent to oldest [Reference Range]: 1 BUN [7-25 mg/dL] 14 mg/dL (04/18/23 7:39 AM) Cholesterol Total [<=200 mg/dL] 181 mg/d L (04/18/23 7:39 AM) LDL 87.0 mg/dL 1 *NA* (04/18/23 7:39 AM) Glucose Level [70-109 mg/dL] 126 mg/dL *HI* (04/18/23 7:39 AM) Potassium Level [3.5-5.1 mmol/L] 4.4 mmo l/L (04/18/23 7:39 AM) HDL [23-92 mg/dL] 80 mg/dL (04/18/23 7:39 AM) AST [13-39 IntlUnit/L] 49 IntlUnit/L *HI* (04/18/23 7:39 AM) ALT [7-52 IntlUnit/L] 46 IntlUnit/L (04/18/23 7:39 AM) Osmolality [275-295 mOsm/kg] 274 mOsm/kg *LOW* (04/18/23 7:39 AM) Sodium Level [136-145 mmol/L] 136 mmol/L (04/18/23 7:39 AM) Chol/HDL 2.3 2 *NA* (04/18/23 7:39 AM) Triglycerides [<=150 mg/dL] 71 mg/dL (04/18/23 7:39 AM) Calcium Level [8.6-10.3 mg/dL] 9.8 mg/dL (04/18/23 7:39 AM) Albumin Level [3.5-5.7 g/dL] 4.1 g/dL (04/18/23 7:39 AM) Protein Total [6.4-8.9 g/dL] 7.2 g/dL (04/18/23 7:39 AM) Bilirubin Total [0.3-1.0 mg/dL] 0.5 mg/d L (04/18/23 7:39 AM) Alk Phos [34-104 IntlUnit/L] 78 IntlUnit /L (04/18/23 7:39 AM) CO2 [21-31 mmol/L] 30 mmol/L (04/18/23 7:39 AM) Chloride Level [98-107 mmol/L] 101 mmol/ L (04/18/23 7:39 AM) A/G Ratio [1.0-2.5 g/dL] 1.3 g/dL (04/18/23 7:39 AM) BUN/Creat Ratio [8.0-20.0] 17.5 (04/18/23 7:39 AM) Globulin [2.3-3.5 g/dL] 3.1 g/dL (04/18/23 7:39 AM) Hgb A1c Percent [4.0-6.0 %] 5.8 % (04/18/23 7:39 AM) Creatinine Level [0.60-1.20 mg/dL] 0.80 mg/dL (04/18/23 7:39 AM) Anion Gap [3.0-12.0] 5.0 (04/18/23 7:39 AM) eGFR CKD-EPI [>=60 mL/min/1.73 m2] 88 mL /min/1.73 m2 (04/18/23 7:39 AM) 1Interpretive Data: Optimal: Less than 100 mg/dL Above Optimal: 100 - 129 mg/dL Borderline High: 130 - 159 mg/dL High: 160 - 189 mg/dL Very High: > or = 190 mg/dL 2Interpretive Data: RISK MALE FEMALE 1/2 average 3.4 3.3 Average 5.0 4.4 2x Average 9.6 7.1 3x Average 23.4 11.0 Patient Care team information Care Team Personnel Name: TRINI PENNINGTON APRN Position: No Access Member Role: Primary Care Physician Address: Address: [address] [place], [place] [address] [address]- Care Team Related Persons Name: ARTI ALLEN
--- OUTSIDE RECORDS SUMMARY | 2023-11-17 00:56 | XMS_ITS | Continuity of Care Document ---
Author Organization [facility] Address [address] [place] [address] Care Team Providers Care Customer Agent Name Role Phone TRINI PENNINGTON APRN Primary Care Physician Encounter [facility]BR [id number] Date(s): 05/24/23 - 05/24/23 [facility] [address] [place] [address]- Encounter Diagnosis De Quervain's tenosynovitis(Discharge Diagnosis) - 05/24/23 Discharge Disposition: Home or Self Care Attending Physician: Valencia Cedeno APRN Allergies, Adverse Reactions, Alerts No Known Allergies Assessment and Plan Extracted from: Title:Alpine: Wrist Author:Valencia Cedeno APRN Date:05/24/23 1.??De Quervain's tenosynovi tis??M65.4 Bianca has history and exam consistent with de Quervain's tenosynovitis after overuse while at work. We discussed this diagnosis at length and information from [facility] printed and provided. Bianca has been appropriately wearing the splint and taking antiinflammatories without complete relief. Next treatment steps will be for CSI and PT which she is opting to ensure approval through work comp before we administer. She will remain with work restrictions and follow up when CSI gets approved or after 4 weeks of PT to assess progress. All questions are answered prior to appointment end and Bianca is encouraged to contact the office at any time with further questions or needs. Future Appointments Problem List No Known Problems Vital Signs Most recent to oldest [Reference Range]: 1 Peripheral Pulse Rate [60-100 bpm] 68 bp m (05/24/23 10:08 AM) Blood Pressure [90-140/60-90 mmHg] 116/7 4mmHg (05/24/23 10:08 AM) Mean Arterial Pressure, Cuff [65-140 mmH g] 88 mmHg (05/24/23 10:08 AM) Height 152.40 cm (05/24/23 10:08 AM) Height/Length Measured (inches) 60 inch (05/24/23 10:08 AM) Social History Social History Type Response Tobacco Never tobacco user T obacco Use:. Sex Physician Outpatient Note * Valencia Cedeno APRN: PERFORM Event Display: Office Clinic Note Physician Authored Date: [id number] BIANCA ALLEN :1970 Age:53 years Sex:Female Visit Date:05/24/2023 Primary Care Physician: TRINI PENNINGTON APRN Chief Complaint WC- right wrist pain History of Present Illness Bianca is a pleasant 53 year old female who presents for evaluation of right wrist pain after an injury while at work on 05/10/23. She works for the [employer] and on that day noticed repetitive popping and pain to the radial aspect of the wrist. She was seen in the ER the next day and appropriatelydiagnosed with de Quervain's tenosynovitis, given a splint and advised to follow up. She has been wearing the splint which does provide some relief and utilizing oral antiinflammatories intermittently as she cannot tolerate them often related to GI upset. Mild hand numbness while driving and sleeping. No previous hand trauma or surgery. RHD. Review of Systems Constitutional:?No??fevers,?No??chills,?No??sweats Respiratory:?No??shortness of breath,?No??cough Cardiovascular:?No??Chest pain,?No??palpitations,?No??syncope Gastrointestinal:?Nonausea,?No??vomiting,?No??diarrhea Gallo/Lymph:?No??bruising tendency,?No??swollen lymph glands Musculoskeletal:??No??back pain,??No??neck pain,??Positive for??joint pain,??No??muscle pain,??Positive for??decreased range of motion Integumentary:?No??rash,?No??pruritus,?No??abrasions Neurologic: Alert & oriented X 4 Physical Exam Vitals & Measurements HR:??68??(Peripheral)?? BP:??116/74?? SpO2:??98%?? HT:??152.40??cm?? The patient is well dressed, well groomed and appearing stated age in NAD. Focused examination of the right wrist reveals no gross deformity, skin is intact. There is exquisite tenderness about the radial sided first dorsal compartment, mild edema. Mild forearm tenderness. Elbow ROM is full withoutpain. Passive wrist ROM intact. Thumb opposition intact although guarded. Can extend all fingers with ease. CMC grind without crepitus or pain. Leander testing grossly positive. 2+ radial pulse, intact sensation, neurovascularly intact right hand. Assessment/Plan 1.??De Quervain's tenosynovitis??M65.4 Bianca has history and exam consistent with de Quervain's tenosynovitis after overuse while at work. We discussed this diagnosis at length and information from [facility] printed and provided. Bianca has been appropriately wearing the splint and taking antiinflammatories without complete relief. Next treatment steps will be for CSI and PT which she is opting to ensure approval through work comp before we administer. She will remain with work restrictions and follow up when CSI gets approved or after 4 weeks of PT to assess progress. All questions are answered prior to appointment end and Bianca is encouraged to contact the office at any time with further questions or needs. Problem List/Past Medical History Ongoing No chronic problems Historical No qualifying data Medications No active medications Allergies No Known Allergies Social History Electronic Cigarette/Vaping Electronic Cigarette Use: Never. Tobacco Never tobacco user Tobacco Use:. Diagnostic Results Diagnostic Study Interpretation: Images from today are personally reviewed on the [facility] system to reveal no acute fractures, dislocations or abnormalities. Electronically Signed on 05/24/23 11:05 AM Valencia Cedeno APRN Patient Care team information Care Team Personnel Name: TRINI PENNINGTON APRN Position: No Access Member Role: Primary Care Physician Address: Address: [address] [place] [address]- Care Team Related Persons Name: ARTI ALLEN
--- OUTSIDE RECORDS SUMMARY | 2023-11-17 00:56 | XMS_ITS | Continuity of Care Document ---
Author Organization [facility] Address [address] [place] [address] Care Team Providers Care Curriculum Specialist Name Role Phone TRINI PENNINGTON APRN Primary Care Physician Encounter [facility] NBR [id number] Date(s): 08/25/23 - 08/25/23 [facility] [address] [place] [address]- Encounter Diagnosis De Quervain's tenosynovitis, right(Discharge Diagnosis) - 08/25/23 Discharge Disposition: Home or Self Care Attending Physician: Lisa Garcia APRN Allergies, Adverse Reactions, Alerts No Known Allergies Assessment and Plan Extracted from: Title:Ortho--WC f/u R de Querjimmyin's Author:Lisa Garcia APRN Date:08/25/23 1.??De Quervain's tenosynovi tis, right??M65.4 Bianca is a pleasant 53-year-old woman??with improving de Quervain's tenosynovitis on the right. ??This was related to her job with the [employer]. ??She is no longer in that position.?? She has seen significant improvement with bracing, therapy??and a cortisone injection.?? She still has some mild discomfort at the wrist as she is getting back??to activity.?? Therefore I want her to continue with??work modifications for a bit longer. ??I will see her back in 6 weeks at which time I am hopeful we can return her??back to work full duty.?? However, if she continues to have pain at that visit, we will discuss repeat injection versus surgery.?? She may continue with supportive care.?? She is in agreement with the above plan. ??She is encouraged to contact the office at anytime with questions or concerns. ??I spent 20 minutes in reviewing the record, seeing the patient and documenting in the medical record. Future Appointments Medications valACYclovir 500 mg oral [...] Range]: 1 Peripheral Pulse Rate [60-100 bpm] 64 bp m (08/25/23 9:07 AM) Blood Pressure [90-140/60-90 mmHg] 114/6 4mmHg (08/25/23 9:07 AM) Mean Arterial Pressure, Cuff [65-140 mmH g] 81 mmHg (08/25/23 9:07 AM) Social History Social History Type Response Tobacco Never tobacco user T obacco Use:. Sex Hospital Discharge Instructions Follow Up Care 07/14/2023 08:48:45 With:Lisa Garcia APRN Address: [address] [place] [address] When:Within 6 Week(s) Comments:WC F/U RIGHT DE QUERVAIN'S TENOSYNOVITIS Physician Outpatient Note * Lisa Garcia APRN: PERFORM Event Display: Office Clinic Note Physician Authored Date: [id number] BIANCA ALLEN :1970 Age:53 years Sex:Female Visit Date:08/25/2023 Primary Care Physician: TRINI PENNINGTON APRN Chief Complaint Right wrist follow up History of Present Illness Bianca is a pleasant 53-year-old woman??who comes in for follow-up of right de Quervain's tenosynovitis. ??This is work-related.?? Symptoms began while she was working for the [employer].?? 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 She reports that the wrist pain has improved significantly. ??She has treated with bracing, OT??and a cortisone injection about a month ago.?? She only has mild discomfort at the radial wrist.?? She has had no new injury. Review of Systems Constitutional:?No??fevers,?No??chills,?No??sweats Respiratory:?No??shortness of breath,?No??cough Cardiovascular:?No??Chest pain,?No??palpitations,?No??syncope Gastrointestinal:?Nonausea,?No??vomiting,?No??diarrhea Musculoskeletal:??No??back pain,??No??neck pain,??No??joint pain,??Positive for??muscle pain,??No??decreased range of motion Integumentary:?No??rash,?No??pruritus,?No??abrasions Neurologic: Alert & oriented X 4 Psychiatric:?No??anxiety,?No??depression Physical Exam Vitals & Measurements HR:??64??(Peripheral)?? BP:??114/64?? SpO2:??100%?? Pain Score:??0?? The patient is alert and oriented x3. ??Pleasant and cooperative. ??Well-dressed and well-groomed.?? Appears stated age and is well-nourished and well- developed.?Examination of the right wrist andhand is without deformity. ??Skin is intact. ??There is no erythema or warmth. ??No signs or symptoms of infection.?? No point tenderness about the wrist or hand. ??Range of motion is intact at the wrist without pain or discomfort.?? Patient is able to make a composite fist with ease and extend allfingers without difficulty. ??CMC grind test is negative. ??Leander's test is with mild pain.??Skin is warm and pink with brisk capillary refill and sensation and motion are intact distally. Assessment/Plan 1.??De Quervain's tenosynovitis, right??M65.4 Bianca is a pleasant 53-year-old woman??with improving de Quervain's tenosynovitis on the right. ??This was related to her job with the [employer]. ??She is no longer in that position.?? She has seen significant improvement with bracing, therapy??and a cortisone injection.?? She still has some mild discomfort at the wrist as she is getting back??to activity.?? Therefore I want her to continue with??work modifications for a bit longer. ??I will see her back in 6 weeks at which time I am hopeful we can return her??back to work full duty.?? However, if she continues to have pain at that visit, we will discuss repeat injection versus surgery.?? She may continue with supportive care.?? She is in agreement with the above plan. ??She is encouraged to contact the office at anytime with questions or concerns. ??I spent 20 minutes in reviewing the record, seeing the patient and documentingin the medical record. Follow Up Instructions With When Contact Information Lisa Garcia APRN In 6 weeks [address] [place] [address]- Additional Instructions: WC F/U RIGHT DE QUERVAIN'S TENOSYNOVITIS Problem List/Past Medical History Ongoing Injury of right wrist Historical No qualifying data Medications valACYclovir 500 mg oral tablet Allergies No Known Allergies Social History Electronic Cigarette/Vaping Electronic Cigarette Use: Never. Tobacco Never tobacco user Tobacco Use:. Electronically Signed on 08/25/2023 09:35 EDT Lisa Garcia APRN Patient Care team information Care Team Personnel Name: TRINI PENNINGTON APRN Position: No Access Member Role: Primary Care Physician Address: Address: [address] [place] [address]- Care Team Related Persons Name: ARTI ALLEN
--- OUTSIDE RECORDS SUMMARY | 2023-11-17 00:56 | XMS_ITS | Continuity of Care Document ---
Author Organization [facility] Address [address] [place] [address] Care Team Providers Care Pillow Cleaner Name Role Phone TRINI PENNINGTON APRN Primary Care Physician Encounter [facility] NBR [id number] Date(s): 05/24/23 - 05/24/[address] [address] Encounter Diagnosis Pain in right wrist(Final) - Discharge Disposition: Home or Self Care Attending Physician: Valencia Cedeno APRN Admitting Physician: Valencia Cedeno APRN Allergies, Adverse Reactions, Alerts No Known Allergies Assessment and Plan Future Appointments Problem List No Known Problems Results Radiology Reports * Exam Date Time Procedure Performing Provider Status 05/24/23 10:10 AM XR Wrist Complete 3+ Views Right Eduardo Buckner (Verified) Notes: (XR Wrist Complete 3+ Views Right) Reason For Exam: Right wrist pain XR Wrist Complete 3+ Views Right EXAM DESCRIPTION: XR Wrist Complete 3+ Views Right 05/24/2023 INDICATION: RIGHT WRIST PAIN COMPARISON: None IMPRESSION: No acute fracture or dislocation No significant regional arthritic changes No focal lytic or sclerotic lesion. Tiny punctate soft tissue opacity adjacent to the distal aspect of the ulnar styloid which may reflect tiny soft tissue calcification or possible tiny soft tissue foreign body. JOB #: [id number] Final Signed by: Brad Marte MD Signed (Electronic Signature): 05/24/2023 10:13 am Social History Social History Type Response Tobacco Never tobacco user T obacco Use:. Sex Patient Care team information Care Team Personnel Name: TRINI PENNINGTON APRN Position: No Access Member Role: Primary Care Physician Address: Address: [facility] [place] [address]- Care Team Related Persons Name: ARTI ALLEN
--- OUTSIDE RECORDS SUMMARY | 2023-11-17 00:56 | XMS_ITS | Clinical Summary ---
Author Organization [facility] Address [address] [place] [address] Care Team Providers Care Aperture Mask Etcher Name Role Phone Unknown, Provider Primary Care Provider [phone] Social History Tobacco Use Types Packs/Day Years Used Date Smoking Tobacco: Never Assessed Sex and Gender Information Value Date Recorded Sex Assigned at Not on file Gender Identity Not on file Sexual Orientation Not on file Plan of Treatment Health Maintenance Due Date Last Done Comments Hepatitis C Screen 1970 Hepatitis B Vaccine (1 of 3 - 19+ 3-dose series) 03/22 COVID-19 Vaccine (2022- season) 2022 Care Teams Aperture Mask Etcher Relationship Specialty Start Date End Date Unknown, Provider, PCP - General 07/03/23
--- OUTSIDE RECORDS SUMMARY | 2023-11-17 00:56 | XMS_ITS | Referral Summary ---
Author Organization [facility] Address [address] [place] [address] Care Team Providers Care Ramp Agent Name Role Phone Unknown, Provider Primary Care Provider Social History Tobacco Use Types Packs/Day Years Used Date Smoking Tobacco: Never Assessed Sex and Gender Information Value Date Recorded Sex Assigned at Not on file Gender Identity Not on file Sexual Orientation Not on file Plan of Treatment Not on file Care Teams Ramp Agent Relationship Specialty Start Date End Date Unknown, Provider, PCP - General 07/03/23
--- OUTSIDE RECORDS SUMMARY | 2023-11-17 00:56 | XMS_ITS | Clinical Summary ---
Author Organization [facility] [place] [address] Care Team Providers Care Distresser Name Role Phone Unknown Primary Care Provider Unavailabl e Social History Tobacco Use Types Packs/Day Years Used Date Smoking Tobacco: Never Assessed Sex and Gender Information Value Date Recorded Sex Assigned at Not on file Gender Identity Not on file Sexual Orientation Not on file Plan of Treatment Upcoming Encounters Date Type Department Care Team (Late st Contact Info) Description 12/14/2023 3:20 PM EDT Office Visit Dermatology at [facility] [address] [place] [phone] Health Maintenance Due Date Last Done Comments CT Colonography 1970 Colonoscopy 1969 Colorectal Cancer Screening 1970 FIT DNA 1969 FIT 1970 Sigmoidoscopy (10 year) with FIT yearly 1970 Sigmoidoscopy 1970 HIV screen 1987 Hepatitis C Screening 1987 Hepatitis B vaccine (0-59 yrs) (1) 1988 Tdap adult 1988 Tetanus vaccine 1988 HPV test 1999 PAP Smear 1999 Breast Cancer Share Decision Needed 2009 Breast Cancer screening 2009 Zoster vaccine (1 of 2) 2019 Covid-19 Vaccine ( season) 2022 Influenza (Flu) vaccine (1 o f 1 - Influenza standard series) 12/03/2023 Care Teams Distresser Relationship Specialty Start Date End Date Unknown None PCP - General 03/20/17
--- NOTE | 2023-11-24 | DI.MAMMO_ITS ---
Exam(s) MG MAMMO SCREENING 60 MIN DUR EXAM: MG MAMMO SCREENING 60 MIN DUR CLINICAL HISTORY: SCREENING FOR BREAST CA,Z12.31,PERSONAL H/O BREAST CA TECHNIQUE: Mammograms were interpreted according to the usual protocol including computer analysis w Connectivity CAD system, tomosynthesis and C-view imaging. COMPARISON: 2022 from [facility]. FINDINGS: The breasts are composed of heterogeneously dense fibroglandular densities, Breast Density category C . No suspicious masses or suspicious microcalcifications are seen. Previous left lumpectomy. Mild lef t-sided scarring. Mild asymmetry in breast size. No skin thickening or abnormal axillary lymph nodes are seen. There has been no significant change from prior exams. IMPRESSION: BI-RADS Category 2 - Benign Findings Yearly screening mammography is recommended. Breast Density Category C, heterogeneously Dense. The mammogram demonstrates the patient's breast tissue is dense. Dense breast tissue is very common a nd is not abnormal but dense breast tissue can make it harder to find cancer on a mammogram. Also, de nse breast tissue may increase breast cancer risk. This information about the result of the mammogram report was provided to the patient to raise their awareness. Use this report when you speak with the patient about their risks for breast cancer, which includes their family history. At that time, you may recommend additional screening tests (Ultrasound or MRI) as they might be useful based on their r isk. A negative radiographic report should not delay biopsy if a dominant or clinically suspicious mass is present. Up to ten percent of cancers are not identified on mammography. A negative report may reinforce clinical impression. Adenosis and dense breasts may obscure an underlying neoplasm. False positive reports average 6 to 10%.
--- OUTSIDE RECORDS SUMMARY | 2023-11-24 00:37 | XMS_ITS | Encounter Summary ---
Author Organization [facility] Address [address] [place] [address] Care Team Providers Care Data Warehouse Developer Name Role Phone Unknown, Provider Primary Care Provider Encounter Details Date Type Department Care Team (Late st Contact Info) Description 08/11/2023 Lab Requisition [facility] Pathology & Laboratory Medicine - [facility] [address] [place] [address] Philomena Corona MD [address] [place] [address] [address] [place], [place] [id number] Encounter for other general examination Social History [...] management options, if applicable. 08/15/2023 15:33 EDT [facility] Final Diagnosis A. ENDOMETRIUM, BIOPSY: - Minute strips of inactive endometrium. - Extremely scant benign endocervical and squamous mucosa. 08/15/2023 15:33 EDT [facility] Attestation There was significant resident/fellow involvement in the diagnostic evaluation of this case. By the signature below, the attending physician certifies that they have personally conducted a gross and/or microscopic examination of the described specimens and rendered or confirmed the above diagnosis. 08/15/2023 15:33 EDT [facility] at 1533 Clinical History Postmenopausal bleeding 08/15/2023 15:33 EDT [facility] Gross Description A. Received in formalin labelled with proper patient identification (initials C, D) and endometrium is an aggregate of banegas-white viscous mucinous material (1.6 x 1.3 x 0.6 cm). Entirely submitted in A1. Tiffany Mcdonald 08/11/2023 12:03 08/15/2023 15:33 EDT [facility] Resident/Ciaran w: Helena Stroud MD 08/15/2023 15:33 EDT [facility] Performing Lab [facility] 08/15/2023 15:33 EDT [facility] Scanned Images 08/15/2023 15:33 EDT [facility] Tissue ENDOMETRIAL STRUCTURE / Unknown 08/10/2023 15:52 EDT 08/11/2023 8:14 EDT Philomena Corona MD PATHOLOGY ORDERABLES [facility] [address] [place], [place] [address] documented in this encounter Visit Diagnoses Diagnosis Encounter for other general examination documented in this encounter Care Teams Data Warehouse Developer Relationship Specialty Start Date End Date Unknown, Provider, PCP - General 07/03/23 documented as of this encounter
--- OUTSIDE RECORDS SUMMARY | 2023-11-24 00:37 | XMS_ITS | Encounter Summary ---
Author Organization [facility] [place] [address] Care Team Providers Care Asphalt Machine Operator Name Role Phone Unknown Primary Care Provider Unavailabl e Reason for Referral * Consultation (Routine) - Specialty Diagnoses / Procedures Referred By Contsebas t Referred To Contact Dermatology Diagnoses Family history of other specified malignant neoplasm Maite Gutierrez APRN [address] [address] [facility] [address] [place] [address] Referral ID Status Reason Start Date Expiration Date V isits Requested Visits Authorized [id number] Consult, Test & Treat PCP Updated and/or Approved 05/05/2023 11/02/2023 1 1 Encounter Details Date Type Department Care Team (Latest Contact Info) Description 05/13/2023 Transcribe Orders eDH Incoming Referrals [phone] Maite Gutierrez APRN [address] [place] [address] Family history of other specified malignant neoplasm [...] 3:20 PM EDT Office Visit Dermatology at [facility] [address] [place] [address] Scheduled Referrals Name Type Priority Associated Diagnoses Order Schedule Referral to Dermatology Outpatient Referral Routine Family history of other specified malignant neoplasm Ordered: 05/13/2023 documented as of this encounter Visit Diagnoses Diagnosis Family history of other specified malignant neoplasm documented in this encounter Care Teams Asphalt Machine Operator Relationship Specialty Start Date End Date Unknown None PCP - General 03/20/17 documented as of this encounter
--- OUTSIDE RECORDS SUMMARY | 2023-11-24 00:37 | XMS_ITS | Clinical Summary ---
Author Organization [facility] Address [address] [place] [address] Care Team Providers Care Sample Paster Name Role Phone Unknown, Provider Primary Care [...] COVID-19 Vaccine (2022- season) 2022 Care Teams Sample Paster Relationship Specialty Start Date End Date Unknown, Provider, PCP - General 07/03/23
--- OUTSIDE RECORDS SUMMARY | 2023-11-24 00:37 | XMS_ITS | Referral Summary ---
Author Organization [facility] Address [address] [place] [address] Care Team Providers Care Flatwork Catcher Name Role Phone Unknown, Provider Primary Care Provider Social History Tobacco Use Types Packs/Day Years Used Date Smoking Tobacco: Never Assessed Sex and Gender Information Value Date Recorded Sex Assigned at Not on file Gender Identity Not on file Sexual Orientation Not on file Plan of Treatment Not on file Care Teams Flatwork Catcher Relationship Specialty Start Date End Date Unknown, Provider, PCP - General 07/03/23
--- OUTSIDE RECORDS SUMMARY | 2023-11-24 00:37 | XMS_ITS | Clinical Summary ---
Author Organization [facility] [place] [address] Care Team Providers Care Microbiology Lab Technician Name Role Phone Unknown Primary Care Provider [...] 3:20 PM EDT Office Visit Dermatology at [facility] [address] [place] [id number] Health Maintenance Due Date Last Done Comments [...] - Influenza standard series) 12/03/2023 Care Teams Microbiology Lab Technician Relationship Specialty Start Date End Date Unknown None PCP - General 03/20/17
== END 2023-11-24 00:39 ==
LOC: DI 00:19
PROVIDERS: PCP Nurse Practitioner; Visit Provider Nurse Practitioner Family
DX: Z12.31 Encounter for screening mammogram for malignant neoplasm of breast (principal)
CPT/HCPCS: 77063; 77067

== ENCOUNTER 2024-07-01 02:07 | Outpatient (CLI) | payer MEDICAID, SELFPAY ==
--- NOTE | 2024-07-01 13:31 | W.DIABETESNO ---
Date of service: 07/01/24 Time of Service: 12:00 Diabetes Note Reason for Visit: Diabetes education/mgt referral NOTE: Bianca referred for nutrition visit for diabetes education with recent hospital admission where she was told she has ARAVIND form of diabetes. Bianca shows a 21lb weight loss over the last year and said she had a great deal of fatigue. A1c value not included in referral paperwork. Bianca wear's a CGM currently and finds her glucose variabilitiy needs to be addressed. She gets big swings from >200 to <90 in very short amount of time. We discussed first goal is eating real food and avoiding processed foods. Highlighted meal planning and prepping practices as much as she can slowly get into the rhythm of it and gave examples like prepping veggies, cooking eggs and peeling them to be in the fridge ready to go, etc... REviewed her carb recommendations around 140grams of total carbs per day and suggested her small stature= lower amount of kcals. In addition does not exercise so doesn't need a lot just needs to focus on quality and meeting protein goal of ~100grams per day and try more plant protein to meet this goal. She has definitely become more of a food label reader over the last month, especially when it comes to watching added sugar intake. Encouraged her to focus on low added sugar (<20 grams most days) and high fiber. Reviewed education handout and gave some recipe resources. Gave her my card to contact with questions or if she'd like to email me her intake for some comments/guidance. Time Spent in Nutritional Counseling and Treatment: 45 minutes
== END 2024-07-01 02:08 | disposition home or self-care (01) ==
LOC: DS 02:08
PROVIDERS: PCP Nurse Practitioner; Visit Provider Dietitian, Registered
DX: E11.65 Type 2 diabetes mellitus with hyperglycemia (principal)
CPT/HCPCS: 00123; 97802